=== PATIENT | male | born 1995 | race Caucasian/White ===

== ENCOUNTER 2016-10-02 19:14 | Emergency (ER) | payer OTHER ==
[2016-10-02] MEDS ORDERED: ANTIBIOTIC (19:45)
[2016-10-02 19:53] LABS: BASO % 0.1 % (0-2); EOS % 0.9 % (0-7); EOSINOPHIL ABSOLUTE COUNT 0.1 tho/cmm (0.0-0.7); HCT-HEMATOCRIT 49.6 % (36.0-53.5); HGB-HEMOGLOBIN 17.4 gm/dl (13.5-17.0); IMMATURE GRANULOCYTES ABSOLUTE 0.06 tho/cmm (0-0.03); IMMATURE GRANULOCYTES PERCENT 0.4 % (0-0.3); LYMPH % 4.6 % (20-45); LYMPH ABSOLUTE COUNT 0.7 tho/cmm (0.8-4.5); MCH (MEAN CORPUSCULAR HGB) 31.4 pg (28.0-32.0); MCHC MEAN CORPUSCULAR HGB CONC 35.1 % (32.0-36.0); MCV (MEAN CELL VOLUME) 89.5 fl (82.0-96.0); MEAN PLATELET VOLUME 10.3 cmc (9.4-12.4); MONO % 3.9 % (0-12); MONOCYTE ABSOLUTE COUNT 0.6 tho/cmm (0.0-1.2); NEUTROPHIL ABSOLUTE COUNT 14.7 tho/cmm (1.6-8.0); NEUTROPHIL-AUTOMATED 14.7 tho/cmm (1.6-8.0); NEUTROPHILS % 90.1 % (40-80); PLATELET COUNT 292 tho/cmm (150-450); RED BLOOD COUNT 5.54 mil/cmm (4.40-5.70); RED CELL DISTRIBUTION WIDTH 12.3 % (12.4-16.4); WHITE BLOOD COUNT 16.3 tho/cmm (4.0-10.0)
[2016-10-02 20:08] LABS: ALBUMIN 4.3 g/dl (3.5-5.0); ALKALINE PHOSPHATASE 63 U/L (33-138); ALT/SGPT 23 U/L (12-78); ANION GAP 16 mmol/L (0-20); AST/SGOT 20 U/L (10-40); BLOOD UREA NITROGEN 11 mg/dl (6-24); CALCIUM 9.7 mg/dl (8.5-10.5); CARBON DIOXIDE-VENOUS 21 mmol/L (22-32); CHLORIDE 107 mmol/l (96-110); CREATININE 1.09 mg/dl (0.60-1.30); GLUCOSE 102 mg/dL (70-110); LIPASE 57 U/L (73-393); SODIUM 140 mmol/L (135-145); eGFR VALUE FOR BLACK >90 mL/Min
[2016-10-02 21:20] LABS: URINE APPEARANCE CLEAR; URINE BILIRUBIN NEGATIVE (NEG); URINE BLOOD NEGATIVE (NEG); URINE COLOR YELLOW; URINE GLUCOSE (UA) NEGATIVE (NEG); URINE KETONE MODERATE (NEG); URINE LEUKOCYTE ESTERASE NEGATIVE (NEG); URINE NITRITE NEGATIVE (NEG); URINE PROTEIN NEGATIVE (NEG)
[2016-10-02] MEDS ORDERED: PRILOSEC OTC20 M1 PO (22:52)
[2016-10-02] MEDS ORDERED: ZOFRAN ODT4 MG PO (22:52)
== END 2016-10-02 23:07 ==
LOC: EDMED 19:14
PROVIDERS: Emergency Medicine
DX: K52.9 Noninfective gastroenteritis and colitis, unspecified (principal); K21.9 Gastro-esophageal reflux disease without esophagitis
CPT/HCPCS: J2270; J2405; J7030; Q9967